=== PATIENT | male | born 1965 | race Hispanic/Latino ===

== ENCOUNTER 2022-12-05 04:51 | Inpatient (IN) | payer MEDICAID, OTHER ==
[~2022-12-05] VITALS: Ht 180.3 cm; Wt 96.5 kg
[2022-12-05] MEDS ORDERED: DILTIAZEM 25MG INJ IVP ONE (05:17)
[2022-12-05 05:24] LABS: BASOPHILS % (AUTO) 0.3 % (0.0-5.0); EOSINOPHILS % (AUTO) 0.6 % (0.0-8.0); HEMATOCRIT 39.9 % (42-54); LYMPHOCYTES % (AUTO) 5.5 % (21.0-51.0); MEAN CORPUSCULAR HEMOGLOBIN 30.6 pg (27.0-33.0); MEAN CORPUSCULAR HGB CONC 35.1 g/dL (32.0-36.0); MEAN CORPUSCULAR VOLUME 87.1 fL (79-99); MONOCYTES % (AUTO) 5.5 % (3.0-13.0); NEUTROPHILS % (AUTO) 84.3 % (40.0-77.0); PLATELET COUNT (AUTO) 264 K/uL (130-400); RED BLOOD CELL COUNT(AUTO) 4.58 MIL/uL (4.50-6.20); RED CELL DISTRIBUTION WIDTH 13.2 % (11.0-15.5); WHITE BLOOD COUNT (AUTO) 18.5 K/uL (4.8-10.8)
[2022-12-05] MEDS ORDERED: ACETAMINOPHEN 500 MG TABLET PO ONE (05:30)
[2022-12-05] MEDS ORDERED: IPRATROPIUM 0.5 MG/2.5 ML INH IH ONE (05:30)
[2022-12-05] MEDS ORDERED: DILTIAZEM 125 MG/25 ML INJ IV ONE (05:30)
[2022-12-05] MEDS ORDERED: 0.9%NACL 1000ML 1,506 ML IV ONE (05:30)
[2022-12-05 05:32] LABS: APPEARANCE,URINE CLEAR (CLEAR); BILIRUBIN,URINE NEGATIVE (NEGATIVE); COLOR,URINE YELLOW (YELLOW); GLUCOSE, URINE (UA) TRACE mg/dL (NEGATIVE); KETONES,URINE 10 mg/dL (NEGATIVE); LEUKOCYTE ESTERASE ,URINE NEGATIVE Leu/uL (NEGATIVE); NITRATE,URINE NEGATIVE (NEGATIVE); OCCULT BLOOD,URINE NEGATIVE (NEGATIVE); PH,URINE 6.5 (5.0-8.0); PROTEIN,URINE 50 mg/dL (NEGATIVE); UROBILINOGEN,URINE 12 mg/dL (0.2-1.0)
[2022-12-05 05:33] LABS: MUCUS,URINE RARE LPF (None Seen); RBC,URINE 0-1 /HPF (0-1); SQUAMOUS EPITHELIAL CELL,UR RARE /HPF (0-2); WBC,URINE 0-1 /HPF (0-1)
[2022-12-05 05:40] LABS: CREATININE 0.9 mg/dL (0.5-1.5); POTASSIUM 3.2 mmol/L (3.5-5.1)
[2022-12-05] MEDS: DILTIAZEM 125 MG/25 ML INJ 125 MG in 0.9%NACL 100ML 100 ML IV SCH ×2 (05:43→21:52)
[2022-12-05 05:44] LABS: ALBUMIN 2.9 g/dL (3.5-5.0); TOTAL PROTEIN, SERUM 7.8 g/dL (6.0-8.3)
[2022-12-05] MEDS: DILTIAZEM 50MG VIAL IV SCH (05:44)
[2022-12-05] MEDS ORDERED: CEFTRIAXONE 1G VIAL IVP STA (06:32)
[2022-12-05] MEDS ORDERED: POTASSIUM BICARB/CIT AC 25 MEQ TABLET.EFF PO ONE (07:00)
[2022-12-05] MEDS ORDERED: HYDRALAZINE 20MG/ML VIAL IV PRN (07:00)
[2022-12-05] MEDS ORDERED: BENZONATATE 100 MG CAPSULE PO PRN (07:00)
[2022-12-05] MEDS ORDERED: LACTULOSE 20 GM/30 ML UDCUP PO PRN (07:00)
[2022-12-05] MEDS ORDERED: ONDANSETRON 4MG INJ IVP PRN (07:00)
[2022-12-05] MEDS ORDERED: CLONIDINE HCL 0.1 MG TABLET PO PRN (07:00)
[2022-12-05] MEDS ORDERED: TEMAZEPAM 15 MG CAPSULE PO PRN (07:00)
[2022-12-05] MEDS: AZITHROMYCIN 500MG+NS 250ML IV SCH ×2 (07:04→08:54)
[2022-12-05] MEDS: ZOSYN 3.375GM +NS 50ML IV SCH ×3 (07:17→20:04)
[2022-12-05] MEDS: LACTATED RINGERS 1000ML 1,000 ML IV SCH (07:17)
[2022-12-05] MEDS: DOCUSATE SODIUM 100 MG CAP PO SCH ×2 (08:54→20:04)
[2022-12-05] MEDS: ENOXAPARIN SODIUM 40 MG/0.4 ML SYRINGE SQ SCH (08:54)
[2022-12-05] MEDS: IPRATROPIUM 0.5 MG/2.5 ML INH IH PRN ×2 (09:08→11:31)
[2022-12-05 10:39] VITALS: BP 134/89
[2022-12-05] MEDS: ACETAMINOPHEN 325 MG TAB PO PRN (10:49)
[2022-12-05] MEDS: GUAIFENESIN-DM 200/20 MG 10 ML PO PRN (10:50)
[2022-12-05] MEDS: IPRATROPIUM 0.5 MG/2.5 ML INH IH SCH ×3 (11:00→23:00)
[2022-12-05] MEDS: ALBUTEROL 0.083% 2.5 MG/3 ML INH IH SCH ×3 (12:00→23:00)
[2022-12-05] MEDS ORDERED: KCL 20 MEQ ERTAB PO PRN (16:00)
[2022-12-05] MEDS ORDERED: DEXTROSE 50%-WATER 50 ML DISP.SYRIN IV PRN (16:00)
[2022-12-05] MEDS ORDERED: POTASSIUM CHLORIDE 20MEQ/100ML 100 ML IV PRN (16:00)
[2022-12-05] MEDS ORDERED: LIDOCAINE HCL-MPF 1% 2ML VIAL IV PRN ×2 (16:00)
[2022-12-05] MEDS ORDERED: GLUCAGON 1MG KIT 1 MG ML IM PRN (16:00)
[2022-12-05 16:23] VITALS: BP 96/63
[2022-12-05 17:31] LABS: CREATINE KINASE, TOTAL 25 U/L (21-232); MYOGLOBIN 26 ng/mL (10-92)
[2022-12-05 19:52] VITALS: BP 119/66
[2022-12-05 21:49] VITALS: BP 120/65
[2022-12-05 23:12] LABS: CREATINE KINASE, TOTAL 24 U/L (21-232); MYOGLOBIN 21 ng/mL (10-92)
[2022-12-06 00:23] VITALS: BP 110/67
[2022-12-06 04:03] LABS: BASOPHILS % (AUTO) 0.4 % (0.0-5.0); EOSINOPHILS % (AUTO) 0.5 % (0.0-8.0); HEMATOCRIT 34.6 % (42-54); LYMPHOCYTES % (AUTO) 15.4 % (21.0-51.0); MEAN CORPUSCULAR HEMOGLOBIN 30.8 pg (27.0-33.0); MEAN CORPUSCULAR HGB CONC 34.4 g/dL (32.0-36.0); MEAN CORPUSCULAR VOLUME 89.6 fL (79-99); MONOCYTES % (AUTO) 6.6 % (3.0-13.0); NEUTROPHILS % (AUTO) 76.1 % (40.0-77.0); PLATELET COUNT (AUTO) 292 K/uL (130-400); RED BLOOD CELL COUNT(AUTO) 3.86 MIL/uL (4.50-6.20); RED CELL DISTRIBUTION WIDTH 13.6 % (11.0-15.5); WHITE BLOOD COUNT (AUTO) 14.9 K/uL (4.8-10.8)
[2022-12-06 04:24] LABS: CREATININE 0.8 mg/dL (0.5-1.5); MAGNESIUM 1.7 mg/dL (1.80-2.40); PHOSPHORUS 3.5 mg/dL (2.5-4.9); POTASSIUM 3.2 mmol/L (3.5-5.1); THYROID STIMULATING HORMONE 1.41 uIU/mL (0.36-3.74)
[2022-12-06 04:32] VITALS: BP 107/60
[2022-12-06] MEDS: ZOSYN 3.375GM +NS 50ML IV SCH ×3 (04:57→20:07)
[2022-12-06] MEDS: POTASSIUM CHLORIDE 10% ELIXIR 20 MEQ/15 ML UDCUP PO PRN ×3 (04:59→23:17)
[2022-12-06] MEDS: MAGNESIUM 2GM PREMIX 50ML 50 ML IV PRN (05:03)
[2022-12-06] MEDS: DILTIAZEM 50MG VIAL IV SCH (05:30)
[2022-12-06] MEDS: LACTATED RINGERS 1000ML 1,000 ML IV SCH (05:49)
[2022-12-06] MEDS: ACETAMINOPHEN 325 MG TAB PO PRN (05:50)
[2022-12-06] MEDS: ALBUTEROL 0.083% 2.5 MG/3 ML INH IH SCH ×4 (06:32→23:30)
[2022-12-06] MEDS: IPRATROPIUM 0.5 MG/2.5 ML INH IH SCH ×4 (06:32→23:30)
[2022-12-06 08:15] VITALS: BP 103/67
[2022-12-06] MEDS: DOCUSATE SODIUM 100 MG CAP PO SCH ×2 (09:11→20:06)
[2022-12-06] MEDS: AZITHROMYCIN 500MG+NS 250ML IV SCH (09:11)
[2022-12-06] MEDS: ENOXAPARIN SODIUM 40 MG/0.4 ML SYRINGE SQ SCH (09:15)
[2022-12-06 11:41] VITALS: BP 115/72
[2022-12-06] MEDS ORDERED: DILTIAZEM 60MG TAB PO SCH (12:00)
[2022-12-06 16:40] VITALS: BP 121/75
[2022-12-06] MEDS ORDERED: GLUCAGON 1MG KIT 1 MG ML IM PRN (20:00)
[2022-12-06] MEDS ORDERED: DEXTROSE 50%-WATER 50 ML DISP.SYRIN IV PRN (20:00)
[2022-12-06 20:06] VITALS: BP 123/76
[2022-12-06] MEDS: APIXABAN 5 MG TABLET PO SCH (20:06)
[2022-12-06] MEDS: DILTIAZEM 60MG TAB PO SCH (20:07)
[2022-12-06] MEDS: INSULIN HUMULIN R 100 UNIT/ML 3ML SQ SCH (20:22)
[2022-12-06 21:43] LABS: MAGNESIUM 1.7 mg/dL (1.80-2.40)
[2022-12-06 21:44] LABS: POTASSIUM 2.9 mmol/L (3.5-5.1)
[2022-12-06] MEDS: POTASSIUM CHLORIDE 20MEQ/100ML 100 ML IV PRN (21:57)
[2022-12-06 22:10] LABS: AMPHET/METH SCREEN,URINE NEGATIVE (NEGATIVE); BARBITURATE SCREEN, URINE NEGATIVE (NEGATIVE); BENZODIAZEPINES SCREEN,URINE NEGATIVE (NEGATIVE); CANNABINOID SCREEN,URINE NEGATIVE (NEGATIVE); COCAINE SCREEN,URINE NEGATIVE (NEGATIVE); OPIATE SCREEN,URINE NEGATIVE (NEGATIVE); PHENCYCLIDINE SCREEN,URINE NEGATIVE (NEGATIVE)
[2022-12-07 00:14] VITALS: BP 121/51
[2022-12-07] MEDS: MAGNESIUM 2GM PREMIX 50ML 50 ML IV PRN (00:18)
[2022-12-07] MEDS: DILTIAZEM 60MG TAB PO SCH ×4 (01:28→17:06)
[2022-12-07] MEDS: POTASSIUM CHLORIDE 10% ELIXIR 20 MEQ/15 ML UDCUP PO PRN ×3 (01:28→05:53)
[2022-12-07 03:42] LABS: BASOPHILS % (AUTO) 0.7 % (0.0-5.0); EOSINOPHILS % (AUTO) 1.7 % (0.0-8.0); HEMATOCRIT 37.3 % (42-54); LYMPHOCYTES % (AUTO) 23.5 % (21.0-51.0); MEAN CORPUSCULAR HEMOGLOBIN 30.4 pg (27.0-33.0); MEAN CORPUSCULAR HGB CONC 33.5 g/dL (32.0-36.0); MEAN CORPUSCULAR VOLUME 90.8 fL (79-99); NEUTROPHILS % (AUTO) 61.1 % (40.0-77.0); PLATELET COUNT (AUTO) 323 K/uL (130-400); RED BLOOD CELL COUNT(AUTO) 4.11 MIL/uL (4.50-6.20); RED CELL DISTRIBUTION WIDTH 13.4 % (11.0-15.5); WHITE BLOOD COUNT (AUTO) 9.5 K/uL (4.8-10.8)
[2022-12-07 03:48] LABS: CREATININE 0.9 mg/dL (0.5-1.5); POTASSIUM 3.6 mmol/L (3.5-5.1)
[2022-12-07] MEDS ORDERED: 0.9%NACL 50ML 50 ML IV ONE (04:27)
[2022-12-07] MEDS: ZOSYN 3.375GM +NS 50ML IV SCH ×3 (04:30→20:13)
[2022-12-07] MEDS: GUAIFENESIN-DM 200/20 MG 10 ML PO PRN ×2 (04:38→17:05)
[2022-12-07 04:54] VITALS: BP 128/82
[2022-12-07] MEDS: POTASSIUM CHLORIDE 20MEQ/100ML 100 ML IV PRN (04:54)
[2022-12-07] MEDS: DILTIAZEM 50MG VIAL IV SCH (05:30)
[2022-12-07] MEDS: INSULIN HUMULIN R 100 UNIT/ML 3ML SQ SCH ×4 (06:12→21:00)
[2022-12-07] MEDS: ALBUTEROL 0.083% 2.5 MG/3 ML INH IH SCH ×4 (06:20→23:43)
[2022-12-07] MEDS: IPRATROPIUM 0.5 MG/2.5 ML INH IH SCH ×4 (06:20→23:43)
[2022-12-07 06:47] VITALS: BP 129/82
[2022-12-07] MEDS: DOCUSATE SODIUM 100 MG CAP PO SCH ×2 (09:02→20:13)
[2022-12-07] MEDS: AZITHROMYCIN 500MG+NS 250ML IV SCH (09:02)
[2022-12-07] MEDS: APIXABAN 5 MG TABLET PO SCH ×2 (09:02→20:14)
[2022-12-07 12:37] VITALS: BP 155/77
[2022-12-07] MEDS ORDERED: APIX5TAB PO (15:25)
[2022-12-07] MEDS ORDERED: DOXY-252 PO (15:25)
[2022-12-07] MEDS ORDERED: PRED20TA3 PO (15:25)
[2022-12-07] MEDS ORDERED: DILT120C89 PO (15:25)
[2022-12-07] MEDS ORDERED: AMOX-426 PO (15:25)
[2022-12-07] MEDS ORDERED: GLIP2.5T17 PO (15:37)
[2022-12-07] MEDS ORDERED: ATOR10 PO (15:37)
[2022-12-07] MEDS ORDERED: LISI20TA24 PO (15:37)
[2022-12-07] MEDS ORDERED: METF-444 PO (15:37)
[2022-12-07] MEDS: METFORMIN HCL 500 MG TABLET PO SCH (16:21)
[2022-12-07] MEDS: FUROSEMIDE 20MG VIAL IV SCH (16:21)
[2022-12-07 16:26] VITALS: BP 143/85
[2022-12-07] MEDS ORDERED: GLIPIZIDE XL 2.5MG TAB PO SCH (16:30)
[2022-12-07 19:03] VITALS: BP 139/85
[2022-12-07] MEDS: LISINOPRIL 10 MG TABLET PO SCH (20:14)
[2022-12-07] MEDS ORDERED: ATORVASTATIN 10 MG TABLET PO SCH (21:00)
[2022-12-07] MEDS: GUAIFENESIN SUGAR-FREE 100 MG/5 ML UDCUP PO PRN (21:13)
[2022-12-08 00:03] VITALS: BP 128/69
[2022-12-08] MEDS: DILTIAZEM 60MG TAB PO SCH ×2 (00:48→06:16)
[2022-12-08 03:03] VITALS: BP 125/65
[2022-12-08 03:45] LABS: BASOPHILS % (AUTO) 1.2 % (0.0-5.0); EOSINOPHILS % (AUTO) 2.1 % (0.0-8.0); LYMPHOCYTES % (AUTO) 23.4 % (21.0-51.0); MEAN CORPUSCULAR HEMOGLOBIN 30.5 pg (27.0-33.0); MEAN CORPUSCULAR HGB CONC 34.4 g/dL (32.0-36.0); MEAN CORPUSCULAR VOLUME 88.6 fL (79-99); MONOCYTES % (AUTO) 9.9 % (3.0-13.0); NEUTROPHILS % (AUTO) 55.6 % (40.0-77.0); PLATELET COUNT (AUTO) 402 K/uL (130-400); RED BLOOD CELL COUNT(AUTO) 4.63 MIL/uL (4.50-6.20); RED CELL DISTRIBUTION WIDTH 13.4 % (11.0-15.5)
[2022-12-08 04:03] LABS: CREATININE 0.8 mg/dL (0.5-1.5); MAGNESIUM 1.6 mg/dL (1.80-2.40); POTASSIUM 3.6 mmol/L (3.5-5.1)
[2022-12-08] MEDS: FUROSEMIDE 20MG VIAL IV SCH ×2 (04:22→16:18)
[2022-12-08] MEDS: ZOSYN 3.375GM +NS 50ML IV SCH ×2 (04:44→13:06)
[2022-12-08] MEDS: MAGNESIUM 2GM PREMIX 50ML 50 ML IV PRN (04:44)
[2022-12-08] MEDS: ALBUTEROL 0.083% 2.5 MG/3 ML INH IH SCH ×2 (07:15→11:27)
[2022-12-08] MEDS: IPRATROPIUM 0.5 MG/2.5 ML INH IH SCH ×2 (07:15→11:27)
[2022-12-08] MEDS ORDERED: GLIPIZIDE XL 2.5MG TAB PO SCH (08:00)
[2022-12-08] MEDS: LISINOPRIL 10 MG TABLET PO SCH (08:03)
[2022-12-08] MEDS: METFORMIN HCL 500 MG TABLET PO SCH ×2 (08:03→16:18)
[2022-12-08] MEDS: APIXABAN 5 MG TABLET PO SCH (08:03)
[2022-12-08] MEDS: INSULIN HUMULIN R 100 UNIT/ML 3ML SQ SCH ×3 (08:03→16:15)
[2022-12-08] MEDS: DOCUSATE SODIUM 100 MG CAP PO SCH (08:04)
[2022-12-08] MEDS: AZITHROMYCIN 500MG+NS 250ML IV SCH (08:04)
[2022-12-08 08:27] VITALS: BP 129/82
[2022-12-08] MEDS: GUAIFENESIN SUGAR-FREE 100 MG/5 ML UDCUP PO PRN ×2 (08:29→17:44)
[2022-12-08] MEDS ORDERED: DILTIAZEM 120MG SR CAP PO SCH (09:00)
[2022-12-08 12:34] VITALS: BP 148/102
[2022-12-08 15:59] VITALS: BP 130/76
[2022-12-08] MEDS: ACETAMINOPHEN 325 MG TAB PO PRN (17:45)
== END 2022-12-08 18:09 | disposition home or self-care (01) | DRG 871 ==
LOC: EDH 04:51 → EDHIP 04:52 → OBSVTOIN 04:52 → 2AH 09:20
PROVIDERS: ADMIT Internal Medicine Critical Care Medicine; ATTEND Internal Medicine Critical Care Medicine
DX: A41.9 Sepsis, unspecified organism (principal); J18.9 Pneumonia, unspecified organism; J96.01 Acute respiratory failure with hypoxia; Z20.822 Contact with and (suspected) exposure to COVID-19; E44.0 Moderate protein-calorie malnutrition; I48.91 Unspecified atrial fibrillation; E66.9 Obesity, unspecified; E80.6 Other disorders of bilirubin metabolism; E11.65 Type 2 diabetes mellitus with hyperglycemia; E78.5 Hyperlipidemia, unspecified; I10 Essential (primary) hypertension; K52.9 Noninfective gastroenteritis and colitis, unspecified; Z79.899 Other long term (current) drug therapy; Z87.891 Personal history of nicotine dependence; Z68.29 Body mass index [BMI] 29.0-29.9, adult
CPT/HCPCS: 36415; 71045; 71250; 74150; 80048; 80053; 80061; 80305; 81001; 82550; 82948; 83036; 83605; 83735; 83874; 84100; 84132; 84443; 84484; 85025; 87040; 87426; 87635; 87804; 93005; 93306; 93356; 94640; 94664; 96361; 96365; C9803; G0378; J0456; J1650; J1815; J1940; J2543; J3475; J3480; J3490; J7120